=== PATIENT | female | born 1960 | race African-American/Black ===

== ENCOUNTER 2017-09-08 07:47 | Day surgery (SDC) | payer MEDICAID ==
[~2017-09-08] VITALS: Ht 149.9 cm; Wt 92.5 kg
[2017-09-08] MEDS ORDERED: fentaNYL 0.05 MG/ML VIAL ONE (11:12)
[2017-09-08] MEDS ORDERED: MIDAZOLAM 2 MG/2 ML VIAL ONE (11:12)
[2017-09-08] MEDS ORDERED: LIDOCAINE 2% 100 MG/5 ML UJET TP ONE (11:12)
[2017-09-08] MEDS ORDERED: DOCU-300 PO (11:18)
[2017-09-08] MEDS ORDERED: VAS5 PO (11:18)
[2017-09-08] MEDS ORDERED: OMEP20TC12 PO (11:18)
[2017-09-08] MEDS ORDERED: METR250T2 PO (11:18)
[2017-09-08] MEDS ORDERED: CIPR500P4 PO (11:18)
[2017-09-08] MEDS ORDERED: NAPR-54 PO (11:18)
[2017-09-08] MEDS ORDERED: MIDAZOLAM 2 MG/2 ML VIAL IVP ONE (13:30)
[2017-09-08] MEDS ORDERED: fentaNYL 0.05 MG/ML VIAL IVP ONE (13:30)
== END 2017-09-08 12:43 | disposition home or self-care (01) ==
LOC: MMU 07:47 → MDS 07:47
PROVIDERS: ATTEND Internal Medicine Gastroenterology
DX: D12.4 Benign neoplasm of descending colon (principal); K21.9 Gastro-esophageal reflux disease without esophagitis; E66.01 Morbid (severe) obesity due to excess calories; M19.90 Unspecified osteoarthritis, unspecified site; F41.9 Anxiety disorder, unspecified; I10 Essential (primary) hypertension; J45.909 Unspecified asthma, uncomplicated; Z98.890 Other specified postprocedural states; Z90.710 Acquired absence of both cervix and uterus; Z88.0 Allergy status to penicillin; Z68.41 Body mass index [BMI] 40.0-44.9, adult
CPT/HCPCS: 45385; J2250; J3010